=== PATIENT | female | born 1945 | race Caucasian/White ===

== ENCOUNTER 2017-04-20 18:55 | Emergency (ER) | payer MEDICARE ==
[2017-04-20] MEDS ORDERED: Sodium Chloride 0.9% 1000 ML 1,000 ML IV STA (19:15)
[2017-04-20] MEDS ORDERED: Phenergan 25 MG INJ IV ONE (19:15)
[2017-04-20] MEDS ORDERED: MORPHINE SULFATE 4 MG INJ IV ONE (19:15)
--- NOTE | 2017-04-20 19:20 | ERPHSYRPT ---
- History of Present Illness Time Seen by Provider: 04/20/17 19:02 Source: patient Exam Limitations: no limitations Patient Subjective Stated Complaint: pt states she fell 2 days ago and has been having increased back pain and pain in her legs, bilat knees and lt hip. Triage Nursing Assessment: pt alert and oriented, asnwers questions approp. pt arrive per ambulance. transfer from ambulance cot to stretcher with assist of 3. respirations nonlabored with lungs cta. abd soft and nontender, colostomy to lt abd with small amt of formed stool. strength in bilat lower ext wnl. cap refill and sensation to bilat lower ext wnl. Physician History: TWO DAYS AGO PT WAS AT HOME WEARING HOSPITAL SOX WHEN SHE SLIPPED AND FELL WITH RESULTANT PAIN IN THE BACK, LEFT HIP, KNEES, LEGS AND RIGHT LOWER ABDOMEN. PT DENIES SHORTNESS OF AIR, CHEST PAIN, WEAKNESS, NUMBNESS. Allergies/Adverse Reactions: No Known Drug Allergies Allergy (Verified 04/20/17 19:18) Home Medications: Alprazolam 1 mg [Xanax 1 mg] 1 mg PO TID 04/02/13 [History] Aspirin 81 gm Chew [Baby Aspirin 81 mg Chew] 81 mg PO DAILY 04/02/13 [ History] Clopidogrel Bisulfate 75 mg [PLAVIX 75 MG Tablet] 75 mg PO DAILY 04/02/13 [History] Furosemide 40 mg PO DAILY 04/02/13 [History] Lisinopril 5 mg [Zestril 5 MG] 5 mg PO DAILY 04/02/13 [History] Oxycodone HCl 20 mg PO QID 04/02/13 [History] Potassium Chloride 20 Meq [Klor-Con 20 MEQ] 10 meq PO BID 04/02/13 [History] Prednisone 20 mg [Deltasone 20 mg] 5 mg PO BID 04/02/13 [History] Propylthiouracil 50 mg PO TID 04/02/13 [History] Simvastatin 40 mg [Zocor 40 mg] 40 mg PO DAILY 04/02/13 [History] Sotalol HCl [Betapace] 80 mg PO BID 04/02/13 [History] Fentanyl 50Mcg Patch [Duragesic 50MCG Patch] 1 patch TD UD 04/20/17 [ History] Glipizide 5 mg [Glucotrol 5 MG] 5 mg PO DAILY 04/20/17 [History] Omeprazole [Prilosec] 40 mg PO DAILY 04/20/17 [History] Venlafaxine HCl ER 37.5 mg [Effexor ER 37.5 MG] 37.5 mg PO DAILY 04/20/17 [History] Hx Tetanus, Diphtheria Vaccination/Date Given: Yes Hx Influenza Vaccination/Date Given: No Hx Pneumococcal Vaccination/Date Given: No - Review of Systems Constitutional: No Weakness Respiratory: No Dyspnea Cardiac: No Chest Pain Abdominal/Gastrointestinal: Abdominal Pain Musculoskeletal: Back Pain, Other (PAIN IN LEGS, KNEES AND LEFT HIP) Neurological: No Sensory Changes All Other Systems: Reviewed and Negative - Past Medical History Pertinent Past Medical History: Yes Neurological History: Peripheral Neuropathy ENT History: No Pertinent History Cardiac History: Congestive Heart Failure, Myocardial Infarction (CT) Respiratory History: No Pertinent History Endocrine Medical History: Diabetes Type II Musculoskeletal History: Other GI Medical History: Diverticulitis, GERD, Hernia, Other History: Other Psycho-Social History: Anxiety, Depression Female Reproductive Disorders: No Pertinent History Other Medical History: back pain - Past Surgical History Past Surgical History: Yes Neuro Surgical History: No Pertinent History Cardiac: Angioplasty, Internal Defibrillator Respiratory: No Pertinent History Gastrointestinal: Bowel Surgery Genitourinary: No Pertinent History Musculoskeletal: No Pertinent History Female Surgical History: Hysterectomy, Tubal Ligation Other Surgical History: bladder tie up. pacemaker defib. 1 heart stent - Social History Smoking Status: Former smoker How long have you smoked: 40yrs Exposure to second hand smoke: Yes Drug Use: none Patient Lives Alone: Yes - Nursing Vital Signs Nursing Vital Signs: Initial Vital Signs Temperature 98.7 F 04/20/17 19:02 Pulse Rate 134 H 04/20/17 19:02 Respiratory Rate 20 04/20/17 19:02 Blood Pressure 131/88 04/20/17 19:02 O2 Sat by Pulse Oximetry 94 L 04/20/17 19:02 Pain Scale Pain Intensity 6 - Isai Coma Score Best Eye Response ([place]): (4) open spontaneously Best Verbal Response (Isai): (5) oriented Best Motor Response (Isai): (6) obeys commands [place] Total: 15 - Physical Exam General Appearance: alert Head Injury: no evidence of injury Eye Exam: eyes nml inspection ENT Exam: airway nml, hearing grossly normal Neck Exam: trachea midline, normal inspection, No tenderness Respiratory/Chest Exam: normal breath sounds Cardiovascular Exam: murmur (2/6 SYSTOLIC MURMUR) Gastrointestinal Exam: soft, normal bowel sounds, tenderness (MILD RLQ ABDOMINAL TENDERNESS), other (COLOSTOMY LEFT SIDE OF ABDOMEN) Back Exam: other (KYPHOSIS) Extremity Exam: normal range of motion, pelvis stable, tenderness (MILD LEFT HIP , KNEES AND BILATERAL LEG TENDERNESS) Peripheral Pulses: dorsalis-pedis (R): 2+, dorsalis-pedis (L): 2+ Neurologic Exam: alert, cooperative, sensation nml, No motor deficits, No motor weakness Skin Exam: warm, dry SpO2 Interpretation: normal SpO2: 94 Oxygen Delivery: Room Air - Course Nursing assessment & vital signs reviewed: Yes EKG Interpreted by Me: RATE (136), NORMAL AXIS, Left Bundle Branch Block, Other (VENTRICULAR TACHYCARDIA) - Radiology Exams Left Lower Leg X-ray Interpretation: Interpreted by me, No Fracture Pelvis X-ray Interpretation: Interpreted by me, No Fracture Right Lower Leg X-ray Interpretation: Teleradiologist Report, No Fracture Right Knee X-ray Interpretation: Teleradiologist Report (SUGGESTION OF A BONY STRUCTURE ADJACENT TO THE MEDIAL TIBIAL PLATEAU SEEN ON ONLY ONE IMAGE. A NON-DISPLACED FRACTURE WOULD HAVER A SIMILAR APPEARANCE.) Left Knee X-ray Interpretation: Teleradiologist Report (NO ACUTE FINDINGS) T-Spine X-ray Interpretation: Teleradiologist Report (DEMINERALIZATION OF THE BONES LIMITS EVALUATION FOR NONDISPLACED FRACTURES. THERE APPEAR TO BE MULTIPLE MILD COMPRESSION DEFORMITIES IN THE THORACIC SPINE ARE NOT PRESENT ON PRIOR EXAMINATION.) L-Spine X-ray Interpretation: Teleradiologist Report (SEVERE DEMINERALIZATION OF THE BONES LIMITS EVALUATION FOR NONDISPLACED FRACTURES. COMPARED TO PRIOR STUDY, THERE ARE NEW L4 AND L5 SUPERIOR ENDPLATE FRACTURES. THERE APPEAR TO BE NEW T10 , T11, AND T12 SUPERIOR ENDPLATE FRACTURES WELL. THESE ARE AGE-INDETERMINATE , POSSIBLY ACUTE.) Chest X-ray Interpretation: Interpreted by me (CM) - CT Exams Abdomen/Pelvis CT Interpretation: Discussed w/radiologist (COMPARED TO 04/11/11: STABLE LEFT SIDED COLOSTOMY WITHOUT COMPLICATIONS. STABLE RECTAL STUMP CONCRETIONS. NEW SMALL HIATAL HERNIA. FATTY LIVER. REMOTE BILATERAL PELVIC BONE FRACTURES. REMOTE T11/T12 COMPRESSION FX. NOTHING ACUTE.) Chest CT Interpretation: Tele-radiologist Report (NO PE; SPICULATED 1.6 CM RIGHT UPPER LOBE PULMONARY NODULE ON IMAGE 131 OF SERIES 2 IS WORRISOME FOR MALIGNANCY. ) Ordered Tests: Active Orders 24 hr Category Date Time Status Hand Bunch Maker STAT Care 04/21/17 00:52 Active Clean Catch Urine Specimen STAT Care 04/20/17 19:15 Active EKG-ER Only STAT Care 04/21/17 00:51 Active IV Insertion STAT Care 04/20/17 19:15 Active Oxygen-ED Only NASAL CANNULA 2 lpm Care 04/21/17 00:51 Active Pulse Oximetry (ED) STAT Care 04/21/17 00:51 Active ABDOMEN AND PELVIS W/0 CONTRAS [CT] Stat Exams 04/20/17 19:16 Taken CHEST 1 VIEW (PORTABLE) Stat Exams 04/21/17 00:51 Taken CHEST WITH CONTRAST [CT] Stat Exams 04/21/17 01:43 Ordered KNEE (3 VIEWS) Stat Exams 04/20/17 19:17 Taken KNEE (3 VIEWS) Stat Exams 04/20/17 19:19 Taken LOWER LEG Stat Exams 04/20/17 19:17 Taken LOWER LEG Stat Exams 04/20/17 19:19 Taken LUMBAR COMPLETE (MIN 4 VIEWS) Stat Exams 04/20/17 19:17 Taken PELVIS (1 OR 2 VIEWS) Stat Exams 04/20/17 19:17 Taken THORACIC SPINE (AP,LAT,SWIMM) Stat Exams 04/20/17 19:17 Taken AMYLASE Stat Lab 04/20/17 19:30 Completed CBC W DIFF Stat Lab 04/20/17 19:30 Completed CMP Stat Lab 04/20/17 19:30 Completed D-DIMER QUANTITATION Stat Lab 04/21/17 01:10 Completed LIPASE Stat Lab 04/20/17 19:30 Completed MAG [MAGNESIUM] Stat Lab 04/20/17 19:30 Completed MAGNESIUM Stat Lab 04/21/17 01:10 Completed NT PRO BNP Stat Lab 04/21/17 01:10 Completed TROPONIN Q3H Lab 04/21/17 01:10 Completed TROPONIN Q3H Lab 04/21/17 04:05 Received TROPONIN Q3H Lab 04/21/17 07:00 Ordered TROPONIN Q3H Lab 04/21/17 10:00 Ordered TROPONIN Q3H Lab 04/21/17 13:00 Ordered UA W/RFX UR CULTURE Stat Lab 04/20/17 19:16 Ordered Medication Summary Generic Name Dose Route Start Last Admin Trade Name Freq PRN Reason Stop Dose Admin Potassium Chloride/Sodium Chloride 1,000 mls @ 500 mls/hr 04/21/17 01:00 01:00 Sodium Chloride 0.9% W/ 20 Meq Kcl/Liter IV 05/21/17 00:59 500 mls/hr .Q2H LUIS MIGUEL Administration AMIODARONE IN DEXTROSE,ISO-OSM 360 mg in 200 mls @ 33 mls/hr 04/21/17 02:30 04/21/17 03:08 Nexterone 360 Mg/200 Ml Bag IV 05/21/17 02:29 33 mls/hr .Q6H4M LUIS MIGUEL Administration Protocol Discontinued Medications Generic Name Dose Route Start Last Admin Trade Name [place] PRN Reason Stop Dose Admin Amiodarone HCl 150 mg 04/21/17 01:21 04/21/17 01:32 Cordarone 150 Mg/3 Ml Injection IV 04/21/17 01:22 150 mg STAT ONE Administration Amiodarone HCl Confirm 04/21/17 01:21 Cordarone 150 Mg/3 Ml Injection Administered 04/21/17 01:22 Dose 150 mg .ROUTE .STK-MED ONE Fentanyl Citrate 25 mcg 04/21/17 03:44 04/21/17 03:51 Sublimaze 100 Mcg/2 Ml IV 04/21/17 03:45 25 mcg STAT ONE Administration Fentanyl Citrate Confirm 04/21/17 03:50 Sublimaze 100 Mcg/2 Ml Administered 04/21/17 03:51 Dose 100 mcg .ROUTE .STK-MED ONE Sodium Chloride 1,000 mls @ 999 mls/hr 04/20/17 19:15 04/20/17 21:15 Sodium Chloride 0.9% 1000 Ml IV 04/20/17 20:15 999 mls/hr .Q1H1M STA Administration Sodium Chloride Confirm 04/20/17 19:40 Sodium Chloride 0.9% 1000 Ml Administered 04/20/17 19:41 Dose 1,000 mls @ ud .ROUTE .STK-MED ONE Sodium Chloride Confirm 04/21/17 01:22 Sodium Chloride 0.9% 100 Ml Ivpb Administered 04/21/17 01:23 Dose 100 mls @ ud IV .STK-MED ONE Dextrose Confirm 04/21/17 01:26 D5w 100ml Mini Bag 100 Ml Administered 04/21/17 01:27 Dose 100 mls @ ud IV .STK-MED ONE Sodium Chloride Confirm 04/21/17 03:50 Sodium Chloride 0.9% 1000 Ml Administered 04/21/17 03:51 Dose 1,000 mls @ ud .ROUTE .STK-MED ONE Morphine Sulfate 4 mg 04/20/17 19:15 04/20/17 21:15 Morphine Sulfate 4 Mg Inj IV 04/20/17 19:16 4 mg STAT ONE Administration Morphine Sulfate Confirm 04/20/17 19:40 Morphine Sulfate 4 Mg Inj Administered 04/20/17 19:41 Dose 4 mg .ROUTE .STK-MED ONE Potassium Bicarbonate 50 meq 04/20/17 23:08 04/21/17 02:39 K-Lyte 25 Meq PO 04/20/17 23:09 Not Given STAT ONE Potassium Bicarbonate Confirm 04/20/17 23:27 K-Lyte 25 Meq Administered 04/20/17 23:28 Dose 50 meq .ROUTE .STK-MED ONE Promethazine HCl 12.5 mg 04/20/17 19:15 04/20/17 21:15 Phenergan 25 Mg Inj IV 04/20/17 19:16 12.5 mg STAT ONE Administration Promethazine HCl Confirm 04/20/17 19:40 Phenergan 25 Mg Inj Administered 04/20/17 19:41 Dose 25 mg .ROUTE .STK-MED ONE Lab/Rad Data: Laboratory Result Diagrams 04/20/17 19:30 04/20/17 19:30 Laboratory Results 04/21/17 04/21/17 04/21/17 Range/Units 01:10 01:10 01:10 WBC (4.0-10.5) K/mm3 RBC (4.1-5.4) M/mm3 Hgb (12.0-16.0) gm/dl Hct (35-47) % MCV (78-100) fl MCH (26-32) pg MCHC (32-36) g/dl RDW (11.5-14.0) % Plt Count (150-450) K/mm3 MPV (6-9.5) fl Gran % (36.0-66.0) % Lymphocytes % (24.0-44.0) % Monocytes % (0.0-12.0) % Eosinophils % (0.00-5.0) % Basophils % (0.0-0.4) % Basophils # (0-0.4) D-Dimer 1276.84 H* (215-500) ng/mL Sodium (137-145) mmol/L Potassium (3.5-5.1) mmol/L Chloride (98-107) mmol/L Carbon Dioxide (22-30) mmol/L Anion Gap (5-15) MEQ/L BUN (7-17) mg/dL Creatinine (0.52-1.04) mg/dL Estimated GFR ML/MIN Glucose (74-106) mg/dL Calcium (8.4-10.2) mg/dL Magnesium 1.6 (1.6-2.3) mg/dL Total Bilirubin (0.2-1.3) mg/dL AST (14-36) U/L ALT (0-35) U/L Alkaline Phosphatase (38-126) U/L Troponin I 0.072 H (0.000-0.034) ng/mL NT-Pro-B Natriuret Pep 1220 H (0-900) pg/mL Serum Total Protein (6.3-8.2) g/dL Albumin (3.5-5.0) g/dL Amylase (30-110) U/L Lipase (23-300) U/L 04/20/17 04/20/17 04/20/17 Range/Units 19:30 19:30 19:30 WBC 7.4 (4.0-10.5) K/mm3 RBC 4.87 (4.1-5.4) M/mm3 Hgb 14.2 (12.0-16.0) gm/dl Hct 44.0 (35-47) % MCV 90.3 (78-100) fl MCH 29.2 (26-32) pg MCHC 32.3 (32-36) g/dl RDW 14.5 H (11.5-14.0) % Plt Count 197 (150-450) K/mm3 MPV 9.7 H (6-9.5) fl Gran % 68.0 H (36.0-66.0) % Lymphocytes % 17.7 L (24.0-44.0) % Monocytes % 13.1 H (0.0-12.0) % Eosinophils % 0.9 (0.00-5.0) % Basophils % 0.3 (0.0-0.4) % Basophils # 0.02 (0-0.4) D-Dimer (215-500) ng/mL Sodium 135 L (137-145) mmol/L Potassium 3.0 L (3.5-5.1) mmol/L Chloride 94 L (98-107) mmol/L Carbon Dioxide 29 (22-30) mmol/L Anion Gap 15.4 H (5-15) MEQ/L BUN 12 (7-17) mg/dL Creatinine 0.53 (0.52-1.04) mg/dL Estimated GFR > 60 ML/MIN Glucose 151 H (74-106) mg/dL Calcium 9.1 (8.4-10.2) mg/dL Magnesium 1.6 (1.6-2.3) mg/dL Total Bilirubin 2.00 H (0.2-1.3) mg/dL AST 31 (14-36) U/L ALT 21 (0-35) U/L Alkaline Phosphatase 69 (38-126) U/L Troponin I (0.000-0.034) ng/mL NT-Pro-B Natriuret Pep (0-900) pg/mL Serum Total Protein 6.7 (6.3-8.2) g/dL Albumin 4.0 (3.5-5.0) g/dL Amylase 36 (30-110) U/L Lipase 24 (23-300) U/L - Progress Discussed with : Other (SPOKE WITH DR BOWERS(COVERING DINING HOST FOR DR VIDAL(PT'S DINING HOST))(5458) WHO ACCEPTED PT FOR TRANSFER TO [facility] A DIRECT ADMISSION.) - Departure Time of Disposition: 04:24 Departure Disposition: Transfer ([facility]) Clinical Impression: FALL, VENTRICULAR TACHYCARDIA, ELEVATED TROPONIN I, CONTUSIONS OF KNEES AND LEGS, COMPRESSION FRACTURES OF THE BACK, DM, GERD, ANXIETY, DEPRESSION, ABDOMINAL PAIN, PN Condition: Stable Critical Care Time: Yes Critical Care Time(excluding separately billable procedures): 30-74 minutes Referrals: GABRIELLA MONROY [Primary Care Provider] -
[2017-04-20] MEDS ORDERED: MORPHINE SULFATE 4 MG INJ ONE (19:40)
[2017-04-20] MEDS ORDERED: Sodium Chloride 0.9% 1000 ML 1,000 ML ONE (19:40)
[2017-04-20] MEDS ORDERED: Phenergan 25 MG INJ ONE (19:40)
[2017-04-20 19:52] LABS: BASOPHIL % 0.3 % (0.0-0.4); Basophil (Absolute #) 0.02 (0-0.4); Eosinophil % 0.9 % (0.00-5.0); Eosinophil (Absolute #) 0.07 (0-0.5); Granulocyte Absolute (ANC) 5.02 (1.4-6.9); Hemoglobin 14.2 gm/dl (12.0-16.0); Lymphocyte (Absolute #) 1.31 (1.0-4.6); Lymphocytes % 17.7 % (24.0-44.0); Mean Cell Volume 90.3 fl (78-100); Mean Corpuscular Hemoglobin 29.2 pg (26-32); Mean Corpuscular Hgb Concent. 32.3 g/dl (32-36); Mean Platelet Volume 9.7 fl (6-9.5); Monocyte (Absolute #) 0.97 (0.0-1.3); Monocytes % 13.1 % (0.0-12.0); Platelet Count 197 K/mm3 (150-450); Red Blood Count 4.87 M/mm3 (4.1-5.4); Red Cell Distribution Width 14.5 % (11.5-14.0); White Blood Count 7.4 K/mm3 (4.0-10.5)
[2017-04-20 20:13] LABS: ALKALINE PHOSPHATASE 69 U/L (38-126); AMYLASE 36 U/L (30-110); ANION GAP 15.4 MEQ/L (5-15); BLOOD UREA NITROGEN 12 mg/dL (7-17); CHLORIDE 94 mmol/L (98-107); Calcium 9.1 mg/dL (8.4-10.2); Carbon Dioxide 29 mmol/L (22-30); Creatinine 1 0.53 mg/dL (0.52-1.04); Glucose 151 mg/dL (74-106); LIPASE 24 U/L (23-300); SGOT/AST 31 U/L (14-36); SGPT/ALT 21 U/L (0-35); SODIUM 135 mmol/L (137-145); Total Protein 6.7 g/dL (6.3-8.2)
[2017-04-20] MEDS ORDERED: K-LYTE 25 MEQ ONE (23:27)
[2017-04-20] MEDS: K-LYTE 25 MEQ PO ONE (23:32)
[2017-04-21] MEDS ORDERED: Sodium Chloride 0.9% W/ 20 mEq KCl/LITER 1,000 ML IV ONE (00:59)
[2017-04-21] MEDS ORDERED: Sodium Chloride 0.9% W/ 20 mEq KCl/LITER 1,000 ML IV SCH (01:00)
[2017-04-21] MEDS ORDERED: Cordarone 150 MG/3 ML Injection ONE (01:21)
[2017-04-21] MEDS ORDERED: Cordarone 150 MG/3 ML Injection IV ONE (01:21)
[2017-04-21] MEDS ORDERED: Sodium Chloride 0.9% 100 ML IVPB 100 ML IV ONE (01:22)
[2017-04-21] MEDS ORDERED: D5w 100ML Mini Bag 100 ML 100 ML IV ONE (01:26)
[2017-04-21] MEDS ORDERED: NEXTERONE 360 MG/200 ML BAG 360 MG/200 ML PLAST..BAG IV ONE (02:26)
[2017-04-21] MEDS ORDERED: NEXTERONE 360 MG/200 ML BAG 360 MG/200 ML PLAST..BAG IV SCH (02:30)
[2017-04-21] MEDS: K-LYTE 25 MEQ PO ONE (02:39)
[2017-04-21] MEDS ORDERED: SUBLIMAZE 100 MCG/2 ML IV ONE (03:44)
[2017-04-21] MEDS ORDERED: Sodium Chloride 0.9% 1000 ML 0 ML ONE (03:50)
[2017-04-21] MEDS ORDERED: SUBLIMAZE 100 MCG/2 ML ONE (03:50)
[2017-04-21 04:23] LABS: Appearance CLEAR (CLEAR); Bilirubin NEGATIVE (NEGATIVE); Blood TRACE NON-HEM Ery/ul (0-5); Glucose NEGATIVE (NEGATIVE); Ketones LARGE (NEGATIVE); Leukocyte Esterase NEGATIVE (NEGATIVE); Nitrite NEGATIVE (NEGATIVE); Protein,Urine Dip NEGATIVE (Negative); Urobilinogen NORMAL mg/dL (0-1)
[2017-04-21 04:24] LABS: Epithelial Cells FEW /HPF (FEW); WBC 0-2 /HPF (0-5)
[2017-04-21 04:45] LABS: ANION GAP 16.5 MEQ/L (5-15); BLOOD UREA NITROGEN 6 mg/dL (7-17); CHLORIDE 103 mmol/L (98-107); Carbon Dioxide 20 mmol/L (22-30); Creatinine 1 0.42 mg/dL (0.52-1.04); Glucose 114 mg/dL (74-106); Potassium 3.4 mmol/L (3.5-5.1); SODIUM 137 mmol/L (137-145)
[2017-04-21 05:04] VITALS: O2SAT 97
[2017-04-21 05:49] VITALS: BP 113/71; PULSE 112
--- NOTE | 2017-04-21 09:20 | XRAY ---
Indication: Elevated d-dimer. Multiple contiguous axial images obtained through the chest using 80 cc Isovue 370 contrast and PE protocol. Comparison: May 02, 2011. There is good opacification of the pulmonary arteries to include the lobar and segmental branches. No filling defect or pulmonary embolus. Heart remains borderline enlarged again with left-sided pacemaker and leads. Aorta is mild/moderately arteriosclerotic without aneurysm/dissection. Stable subcarinal calcified nodes. No pathologic mediastinal/hilar lymphadenopathy. New small hiatal hernia. New bilateral thyroid nodules/cysts, largest on the right measuring 13 mm. Examination of the lung parenchyma again appears hyperinflated with bilateral dependent atelectasis, bibasilar fibrosis/scarring, and right lower lobe calcified granuloma. New 1.6 cm right upper lobe mass with irregular/spiculated margins. No infiltrate or effusion. Bony thorax again demonstrates osteopenia and multilevel degenerative endplate spurring. Remote-appearing T5/T7/T10/T11/T12 compression fractures and L1-L3 kyphoplasty. CT abdomen reported separately. Impression: 1. Negative pulmonary embolus. 2. New 1.6 cm right upper lobe pulmonary mass concerning for malignancy. PET/CT may yield further information. 3. New small hiatal hernia and bilateral thyroid nodules/cyst. 4. Again borderline cardiomegaly and evidence for old granulomatous disease. 5. New remote-appearing thoracolumbar compression fractures. Comment: Preliminary interpretation was made by [facility]. No discrepancy. CT DI 23.06
--- NOTE | 2017-04-21 09:23 | XRAY ---
Indication: Short of breath. Comparison: May 02, 2011. Portable chest underinflated again with borderline cardiomegaly, left-sided single lead pacemaker, and right base calcified granuloma. New CT proven right upper lobe masslike opacity. No infiltrate or large effusion. Bony thorax again demonstrates mild osteopenia and degenerative changes with new remote-appearing thoracolumbar compression fractures and L1-L3 kyphoplasty.
--- NOTE | 2017-04-21 09:25 | XRAY ---
Indication: Pain following fall. Comparison: January 19, 2012. Frontal/lateral thoracic spine again demonstrates age-related osteopenia, scattered aortic calcifications, and partially visualized cardiac pacer lead. New remote-appearing T5/T/T9-T12 compression fractures with approximately 50% height loss and accentuated thoracic kyphosis. Interval L1/L3 kyphoplasty. No other bony, articular, or soft tissue abnormalities. Comment: Preliminary interpretation was made by [facility]. No discrepancy.
--- NOTE | 2017-04-21 09:27 | XRAY ---
Indication: Pain following fall. Comparison: None 2 views of the left lower leg demonstrates osteopenia and scattered soft tissue calcified granulomas. No other bony, articular, or soft tissue abnormalities.
--- NOTE | 2017-04-21 09:29 | XRAY ---
Indication: Pain following fall. Comparison: None 2 views of the right lower leg demonstrates osteopenia, bicompartmental knee degenerative changes, medial knee air bubbles, scattered soft tissue calcified granulomas, and vascular calcifications. No other bony, articular, or soft tissue abnormalities. Comment: Preliminary interpretation was made by [facility]. No discrepancy.
--- NOTE | 2017-04-21 09:33 | XRAY ---
Indication: Pain following fall. Comparison: None Single AP pelvis demonstrates osteopenia, mild bilateral hip degenerative changes, old bilateral pubic bone fractures, and dense rectal concretions. No other bony, articular, or soft tissue abnormalities. Lumbar spine reported separately.
--- NOTE | 2017-04-21 09:33 | XRAY ---
Indication: Pain following fall. Comparison: April 03, 2013. 5 views of the lumbar spine again demonstrates osteopenia, mild levorotoscoliosis, and heavy aortoiliac calcifications. Interval L1-L3 kyphoplasty and remote T10/T11/T12 L4/L5 compression fractures with approximately 50% height loss. No other bony, articular, or soft tissue abnormalities. Pelvis reported separately. Comment: Preliminary interpretation was made by [facility]. No discrepancy.
--- NOTE | 2017-04-21 09:35 | XRAY ---
Indication: Pain following fall. Comparison: None 3 views of the left knee demonstrates osteopenia, faint medial/lateral degenerative chondrocalcinosis, soft tissue calcite granulomas, and minimal vascular calcifications. No other bony, articular, or soft tissue abnormalities. Comment: Preliminary interpretation was made by [facility]. No discrepancy.
--- NOTE | 2017-04-21 09:37 | XRAY ---
Indication: Pain following fall. Comparison: None 3 views of the right knee demonstrates osteopenia, mild/moderate tricompartmental degenerative changes, soft tissue calcified granulomas, and minimal vascular calcifications. Tiny ossification adjacent to the medial tibial plateau with soft tissue swelling and tiny air bubbles concerning for fracture. No other bony, articular, or soft tissue abnormalities. Comment: Preliminary interpretation was made by [facility]. No critical discrepancy.
--- NOTE | 2017-04-23 00:36 | XRAY ---
Indication: Abdominal pain. Status post fall 2 days. Multiple contiguous axial images obtained through the abdomen and pelvis without contrast as ordered. Comparison: April 11, 2011. Lung bases again hyperinflated with minimal bibasilar atelectasis/scarring and right lower lobe calcified granuloma. No infiltrate or effusion. Heart is not enlarged. New small hiatal hernia. Again previous colectomy with left abdomen colostomy. Noncontrasted stomach and bowel loops appear nonobstructed. Rectal stump again demonstrates dense intraluminal concretions. No free fluid/air. Mild diffuse fatty liver and previous hysterectomy. Again solitary punctate pancreatic tail calcification presumed from chronic pancreatitis and a few calcified splenic granulomas. No free fluid/air. Remaining liver, gallbladder, pancreas, spleen, adrenal glands, kidneys, ureters, and bladder appear unremarkable for noncontrast exam. Moderate scattered aortoiliac calcifications without AAA. Osseous structures demonstrates new remote-appearing T11/T12 compression fractures, old bilateral pubic bone fractures, and L1-L3 kyphoplasty. Impression: 1. New small hiatal hernia and fatty liver. 2. Again colectomy with left-sided colostomy. No complications. 3. No acute intra-abdominal/pelvic abnormalities on this noncontrast exam. 4. New findings for old T11/T12 compression fractures, old bilateral pubic bone fractures, and L1-L3 kyphoplasty. CT DI 20.99
== END 2017-04-21 05:38 | disposition short-term general hospital (02) ==
LOC: ED 18:55
DX: S80.02XA Contusion of left knee, initial encounter (principal); S80.01XA Contusion of right knee, initial encounter; I47.2 Ventricular tachycardia; R77.8 Other specified abnormalities of plasma proteins; S22.059A Unspecified fracture of T5-T6 vertebra, initial encounter for closed fracture; S22.079A Unspecified fracture of T9-T10 vertebra, initial encounter for closed fracture; S22.089A Unspecified fracture of T11-T12 vertebra, initial encounter for closed fracture; Z79.01 Long term (current) use of anticoagulants; E11.9 Type 2 diabetes mellitus without complications; K21.9 Gastro-esophageal reflux disease without esophagitis; F41.8 Other specified anxiety disorders; R10.9 Unspecified abdominal pain; Z93.3 Colostomy status; Z79.899 Other long term (current) drug therapy; I44.7 Left bundle-branch block, unspecified; R91.1 Solitary pulmonary nodule; W01.0XXA Fall on same level from slipping, tripping and stumbling without subsequent striking against object, initial encounter
CPT/HCPCS: 36000; 36415; 71045; 71260; 72072; 72110; 72170; 73562; 73590; 74176; 80048; 80053; 81000; 82150; 83690; 83735; 83880; 84484; 85025; 85379; 93005; 93041; 96360; 96361; 96365; 96366; 99285; J0282; J2270; J2550; J3010; A9270-GY

== ENCOUNTER 2017-12-29 16:13 | Emergency (ER) | payer MEDICARE ==
--- NOTE | 2017-12-29 16:55 | ERPHSYRPT ---
- History of Present Illness Time Seen by Provider: 12/29/17 16:52 Exam Limitations: no limitations Patient Subjective Stated Complaint: Some pain during urination with dribbling, confusion Triage Nursing Assessment: Pt c/o of some pain during urination with dribbling, some confusion, tachycardic, no edema, no pain with palpatation on abdomen, distended, colostomy bag, denies any other issues Physician History: pt noted to be confused by family and has had uti in past , no trauma , but has noted some bowel changes and some tenderness to palp general and distension; no vomting, not short of breath - no CP; normal neuro exam; Timing/Duration: day(s) Abdominal Pain Onset Location: generalized abdomen Pain Radiation: no radiation Severity of Pain-Max: mild Severity of Pain-Current: mild Associated Symptoms: fatigue Previous symptoms: same symptoms as today Allergies/Adverse Reactions: No Known Drug Allergies Allergy (Verified 12/29/17 16:45) Home Medications: Alprazolam 1 mg [Xanax 1 mg] 1 mg PO TID 04/02/13 [History] Aspirin 81 gm Chew [Baby Aspirin 81 mg Chew] 81 mg PO DAILY 04/02/13 [ History] Clopidogrel Bisulfate 75 mg [PLAVIX 75 MG Tablet] 75 mg PO DAILY 04/02/13 [History] Furosemide 40 mg PO DAILY 04/02/13 [History] Lisinopril 5 mg [Zestril 5 MG] 5 mg PO DAILY 04/02/13 [History] Oxycodone HCl 20 mg PO QID 04/02/13 [History] Potassium Chloride 20 Meq [Klor-Con 20 MEQ] 10 meq PO BID 04/02/13 [History] Prednisone 20 mg [Deltasone 20 mg] 5 mg PO BID 04/02/13 [History] Propylthiouracil 50 mg PO TID 04/02/13 [History] Simvastatin 40 mg [Zocor 40 mg] 40 mg PO DAILY 04/02/13 [History] Sotalol HCl [Betapace] 80 mg PO BID 04/02/13 [History] Fentanyl 50Mcg Patch [Duragesic 50MCG Patch] 1 patch TD UD 04/20/17 [ History] Glipizide 5 mg [Glucotrol 5 MG] 5 mg PO DAILY 04/20/17 [History] Omeprazole [Prilosec] 40 mg PO DAILY 04/20/17 [History] Venlafaxine HCl ER 37.5 mg [Effexor ER 37.5 MG] 37.5 mg PO DAILY 04/20/17 [History] Hx Tetanus, Diphtheria Vaccination/Date Given: Yes Hx Influenza Vaccination/Date Given: No Hx Pneumococcal Vaccination/Date Given: No - Review of Systems Constitutional: No Fever, No Chills Eyes: No Symptoms Ears, Nose, & Throat: No Symptoms Respiratory: No Cough, No Dyspnea Cardiac: No Chest Pain, No Edema, No Syncope Abdominal/Gastrointestinal: Abdominal Pain, No Nausea, No Vomiting, No Diarrhea Genitourinary Symptoms: Dysuria Musculoskeletal: No Back Pain, No Neck Pain Skin: No Rash Neurological: No Dizziness, No Focal Weakness, No Sensory Changes Psychological: No Symptoms Endocrine: No Symptoms All Other Systems: Reviewed and Negative - Past Medical History Pertinent Past Medical History: Yes Neurological History: Peripheral Neuropathy ENT History: No Pertinent History Cardiac History: Congestive Heart Failure, Myocardial Infarction (PA) Respiratory History: No Pertinent History Endocrine Medical History: Diabetes Type II Musculoskeletal History: Other GI Medical History: Diverticulitis, GERD, Hernia, Other History: Other Psycho-Social History: Anxiety, Depression Female Reproductive Disorders: No Pertinent History Other Medical History: back pain - Past Surgical History Past Surgical History: Yes Neuro Surgical History: No Pertinent History Cardiac: Angioplasty, Internal Defibrillator Respiratory: No Pertinent History Gastrointestinal: Bowel Surgery Genitourinary: No Pertinent History Musculoskeletal: No Pertinent History Female Surgical History: Hysterectomy, Tubal Ligation Other Surgical History: bladder tie up. pacemaker defib. 1 heart stent - Social History Smoking Status: Former smoker How long have you smoked: 40yrs Exposure to second hand smoke: Yes Drug Use: none Patient Lives Alone: Yes - Female History Hx Now: No - Nursing Vital Signs Nursing Vital Signs: Initial Vital Signs Temperature 97.5 F 12/29/17 16:26 Pulse Rate 111 H 12/29/17 16:26 Blood Pressure 124/76 12/29/17 16:26 O2 Sat by Pulse Oximetry 96 12/29/17 16:26 - Physical Exam General Appearance: no apparent distress, alert Eye Exam: PERRL/EOMI, eyes nml inspection Ears, Nose, Throat Exam: normal ENT inspection, pharynx normal, moist mucous membranes Neck Exam: normal inspection, non-tender, supple, full range of motion Respiratory Exam: normal breath sounds, lungs clear, No respiratory distress Cardiovascular Exam: regular rate/rhythm, normal heart sounds Gastrointestinal/Abdomen Exam: soft, tenderness, distention, No mass Pelvic Exam: deferred Rectal Exam: deferred Back Exam: normal inspection, normal range of motion, No CVA tenderness, No vertebral tenderness Extremity Exam: normal inspection, normal range of motion, pelvis stable Neurologic Exam: alert, oriented x 3, cooperative, normal mood/affect, nml cerebellar function, sensation nml, No motor deficits Skin Exam: normal color, warm, dry SpO2: 96 Oxygen Delivery: Room Air - Course Nursing assessment & vital signs reviewed: Yes EKG Interpreted by Me: Sinus Tach, NORMAL AXIS, Non-specific ST Changes - CT Exams Head CT Interpretation: Tele-radiologist Report, Other (small meningioma) Abdomen/Pelvis CT Interpretation: Tele-radiologist Report, No appendicitis (lung granuloma) Ordered Tests: Active Orders 24 hr Category Date Time Status EKG-ER Only STAT Care 12/29/17 16:58 Active ABDOMEN AND PELVIS W/0 CONTRAS [CT] Stat Exams 12/29/17 16:57 Taken CHEST 1 VIEW (PORTABLE) Stat Exams 12/29/17 16:56 Taken HEAD WITHOUT CONTRAST [CT] Stat Exams 12/29/17 16:57 Taken BNP [NT PRO BNP] Stat Lab 12/29/17 16:59 Completed CBC W DIFF Stat Lab 12/29/17 17:10 Completed CMP Stat Lab 12/29/17 17:10 Completed CULTURE,URINE Stat Lab 12/29/17 18:45 Received LIPASE Stat Lab 12/29/17 17:10 Completed Lactic Acid Stat Lab 12/29/17 17:35 Results T4 (Thyroxine) Stat Lab 12/29/17 17:10 Completed TROPONIN Q3H Lab 12/29/17 17:10 Completed TROPONIN Q3H Lab 12/29/17 20:00 Ordered TROPONIN Q3H Lab 12/29/17 23:00 Ordered TROPONIN Q3H Lab 12/30/17 02:00 Ordered TROPONIN Q3H Lab 12/30/17 05:00 Ordered TSH [TSH, 3RD Generation] Stat Lab 12/29/17 17:10 Completed UA W/RFX UR CULTURE Stat Lab 12/29/17 18:45 Completed Medication Summary Generic Name Dose Route Start Last Admin Trade Name [place] PRN Reason Stop Dose Admin Sodium Chloride 1,000 mls @ 50 mls/hr 12/29/17 17:00 12/29/17 17:42 Sodium Chloride 0.9% 1000 Ml IV 01/28/18 16:59 50 mls/hr .Q20H LUIS MIGUEL Administration Lab/Rad Data: Laboratory Result Diagrams 12/29/17 17:10 12/29/17 17:10 Laboratory Results 12/29/17 12/29/17 12/29/17 Range/Units Unknown 18:45 17:35 WBC (4.0-10.5) K/mm3 RBC (4.1-5.4) M/mm3 Hgb (12.0-16.0) gm/dl Hct (35-47) % MCV (78-100) fl MCH (26-32) pg MCHC (32-36) g/dl RDW (11.5-14.0) % Plt Count (150-450) K/mm3 MPV (6-9.5) fl Gran % (36.0-66.0) % Eos # (Auto) (0-0.5) Absolute Lymphs (auto) (1.0-4.6) Absolute Monos (auto) (0.0-1.3) Lymphocytes % (24.0-44.0) % Monocytes % (0.0-12.0) % Eosinophils % (0.00-5.0) % Basophils % (0.0-0.4) % Absolute Granulocytes (1.4-6.9) Basophils # (0-0.4) Sodium (137-145) mmol/L Potassium (3.5-5.1) mmol/L Chloride (98-107) mmol/L Carbon Dioxide (22-30) mmol/L Anion Gap (5-15) MEQ/L BUN (7-17) mg/dL Creatinine (0.52-1.04) mg/dL Estimated GFR ML/MIN Glucose (74-106) mg/dL Lactic Acid 2.6 H (0.4-2.0) Calcium (8.4-10.2) mg/dL Total Bilirubin (0.2-1.3) mg/dL AST (14-36) U/L ALT (0-35) U/L Alkaline Phosphatase (38-126) U/L Troponin I (0.000-0.034) ng/mL NT-Pro-B Natriuret Pep (0-900) pg/mL Serum Total Protein (6.3-8.2) g/dL Albumin (3.5-5.0) g/dL Lipase (23-300) U/L Thyroxine (T4) (5.53-10.96) ug/dL TSH 3rd Generation (0.47-4.68) mIU/L Urine Color YELLOW (YELLOW) Urine Appearance CLEAR (CLEAR) Urine pH 5.0 (5-6) Ur Specific [place] 1.024 (1.005-1.025) Urine Protein NEGATIVE (Negative) Urine Ketones SMALL (NEGATIVE) Urine Blood MODERATE (0-5) Bk/ul Urine Nitrite NEGATIVE (NEGATIVE) Urine Bilirubin NEGATIVE (NEGATIVE) Urine Urobilinogen NEGATIVE (0-1) mg/dL Ur Leukocyte Esterase NEGATIVE (NEGATIVE) Urine WBC (Auto) 0-2 (0-5) /HPF Urine RBC (Auto) 3-5 (0-2) /HPF U Hyaline Cast (Auto) 6-10 (0-2) /LPF U Epithel Cells (Auto) NONE (FEW) /HPF Urine Bacteria (Auto) RARE (NEGATIVE) /HPF Urine Mucus (Auto) SLIGHT (NEGATIVE) /HPF Urine Culture Reflexed YES (NO) Urine Glucose >=500 (NEGATIVE) mg/dL Influenza Type A Ag NEGATIVE (NEGATIVE) Influenza Type B Ag NEGATIVE (NEGATIVE) RSV (PCR) NEGATIVE (Negative) 12/29/17 12/29/17 12/29/17 Range/Units 17:10 17:10 17:10 WBC (4.0-10.5) K/mm3 RBC (4.1-5.4) M/mm3 Hgb (12.0-16.0) gm/dl Hct (35-47) % MCV (78-100) fl MCH (26-32) pg MCHC (32-36) g/dl RDW (11.5-14.0) % Plt Count (150-450) K/mm3 MPV (6-9.5) fl Gran % (36.0-66.0) % Eos # (Auto) (0-0.5) Absolute Lymphs (auto) (1.0-4.6) Absolute Monos (auto) (0.0-1.3) Lymphocytes % (24.0-44.0) % Monocytes % (0.0-12.0) % Eosinophils % (0.00-5.0) % Basophils % (0.0-0.4) % Absolute Granulocytes (1.4-6.9) Basophils # (0-0.4) Sodium (137-145) mmol/L Potassium (3.5-5.1) mmol/L Chloride (98-107) mmol/L Carbon Dioxide (22-30) mmol/L Anion Gap (5-15) MEQ/L BUN (7-17) mg/dL Creatinine (0.52-1.04) mg/dL Estimated GFR ML/MIN Glucose (74-106) mg/dL Lactic Acid (0.4-2.0) Calcium (8.4-10.2) mg/dL Total Bilirubin (0.2-1.3) mg/dL AST (14-36) U/L ALT (0-35) U/L Alkaline Phosphatase (38-126) U/L Troponin I 0.040 H* (0.000-0.034) ng/mL NT-Pro-B Natriuret Pep (0-900) pg/mL Serum Total Protein (6.3-8.2) g/dL Albumin (3.5-5.0) g/dL Lipase (23-300) U/L Thyroxine (T4) 6.51 (5.53-10.96) ug/dL TSH 3rd Generation 0.510 (0.47-4.68) mIU/L Urine Color (YELLOW) Urine Appearance (CLEAR) Urine pH (5-6) Ur Specific [place] (1.005-1.025) Urine Protein (Negative) Urine Ketones (NEGATIVE) Urine Blood (0-5) Bk/ul Urine Nitrite (NEGATIVE) Urine Bilirubin (NEGATIVE) Urine Urobilinogen (0-1) mg/dL Ur Leukocyte Esterase (NEGATIVE) Urine WBC (Auto) (0-5) /HPF Urine RBC (Auto) (0-2) /HPF U Hyaline Cast (Auto) (0-2) /LPF U Epithel Cells (Auto) (FEW) /HPF Urine Bacteria (Auto) (NEGATIVE) /HPF Urine Mucus (Auto) (NEGATIVE) /HPF Urine Culture Reflexed (NO) Urine Glucose (NEGATIVE) mg/dL Influenza Type A Ag (NEGATIVE) Influenza Type B Ag (NEGATIVE) RSV (PCR) (Negative) 12/29/17 12/29/17 12/29/17 Range/Units 17:10 17:10 16:59 WBC 11.1 H (4.0-10.5) K/mm3 RBC 4.32 (4.1-5.4) M/mm3 Hgb 12.2 (12.0-16.0) gm/dl Hct 38.9 (35-47) % MCV 90.0 (78-100) fl MCH 28.2 (26-32) pg MCHC 31.4 L (32-36) g/dl RDW 15.1 H (11.5-14.0) % Plt Count 263 (150-450) K/mm3 MPV 9.6 H (6-9.5) fl Gran % 84.8 H (36.0-66.0) % Eos # (Auto) 0.04 (0-0.5) Absolute Lymphs (auto) 0.98 L (1.0-4.6) Absolute Monos (auto) 0.61 (0.0-1.3) Lymphocytes % 8.9 L (24.0-44.0) % Monocytes % 5.5 (0.0-12.0) % Eosinophils % 0.4 (0.00-5.0) % Basophils % 0.4 (0.0-0.4) % Absolute Granulocytes 9.38 H (1.4-6.9) Basophils # 0.04 (0-0.4) Sodium 138 (137-145) mmol/L Potassium 4.3 (3.5-5.1) mmol/L Chloride 102 (98-107) mmol/L Carbon Dioxide 24 (22-30) mmol/L Anion Gap 16.3 H (5-15) MEQ/L BUN 28 H (7-17) mg/dL Creatinine 0.58 (0.52-1.04) mg/dL Estimated GFR > 60.0 ML/MIN Glucose 280 H (74-106) mg/dL Lactic Acid (0.4-2.0) Calcium 9.7 (8.4-10.2) mg/dL Total Bilirubin 0.70 (0.2-1.3) mg/dL AST 26 (14-36) U/L ALT 21 (0-35) U/L Alkaline Phosphatase 81 (38-126) U/L Troponin I (0.000-0.034) ng/mL NT-Pro-B Natriuret Pep 4040 H (0-900) pg/mL Serum Total Protein 6.2 L (6.3-8.2) g/dL Albumin 3.8 (3.5-5.0) g/dL Lipase 49 (23-300) U/L Thyroxine (T4) (5.53-10.96) ug/dL TSH 3rd Generation (0.47-4.68) mIU/L Urine Color (YELLOW) Urine Appearance (CLEAR) Urine pH (5-6) Ur Specific [place] (1.005-1.025) Urine Protein (Negative) Urine Ketones (NEGATIVE) Urine Blood (0-5) Bk/ul Urine Nitrite (NEGATIVE) Urine Bilirubin (NEGATIVE) Urine Urobilinogen (0-1) mg/dL Ur Leukocyte Esterase (NEGATIVE) Urine WBC (Auto) (0-5) /HPF Urine RBC (Auto) (0-2) /HPF U Hyaline Cast (Auto) (0-2) /LPF U Epithel Cells (Auto) (FEW) /HPF Urine Bacteria (Auto) (NEGATIVE) /HPF Urine Mucus (Auto) (NEGATIVE) /HPF Urine Culture Reflexed (NO) Urine Glucose (NEGATIVE) mg/dL Influenza Type A Ag (NEGATIVE) Influenza Type B Ag (NEGATIVE) RSV (PCR) (Negative) - Progress Progress: improved, re-examined Progress Note: 12/29/17 19:21 discussed with chris - LOANS CONSULTANT for Dr. Blanco and [facility] will accept pt and pt also agrees to transfer for elevated trop Discussed with : Other (Chris [facility] at [facility]) Will see patient in: ED Counseled pt/family regarding: lab results, diagnosis, need for follow-up, rad results - Departure Time of Disposition: 19:22 Departure Disposition: Transfer Clinical Impression: Elevated troponin, altered mental status - transient Condition: Good Critical Care Time: No Referrals: GABRIELLA MONROY [Primary Care Provider] -
[2017-12-29] MEDS ORDERED: Sodium Chloride 0.9% 1000 ML 1,000 ML IV SCH (17:00)
[2017-12-29 17:20] LABS: BASOPHIL % 0.4 % (0.0-0.4); Basophil (Absolute #) 0.04 (0-0.4); Eosinophil % 0.4 % (0.00-5.0); Eosinophil (Absolute #) 0.04 (0-0.5); Granulocyte Absolute (ANC) 9.38 (1.4-6.9); Granulocytes % 84.8 % (36.0-66.0); Hematocrit 38.9 % (35-47); Hemoglobin 12.2 gm/dl (12.0-16.0); Lymphocyte (Absolute #) 0.98 (1.0-4.6); Lymphocytes % 8.9 % (24.0-44.0); Mean Corpuscular Hemoglobin 28.2 pg (26-32); Mean Corpuscular Hgb Concent. 31.4 g/dl (32-36); Mean Platelet Volume 9.6 fl (6-9.5); Monocyte (Absolute #) 0.61 (0.0-1.3); Monocytes % 5.5 % (0.0-12.0); Platelet Count 263 K/mm3 (150-450); Red Blood Count 4.32 M/mm3 (4.1-5.4); Red Cell Distribution Width 15.1 % (11.5-14.0); White Blood Count 11.1 K/mm3 (4.0-10.5)
[2017-12-29] MEDS ORDERED: Sodium Chloride 0.9% 1000 ML 1,000 ML ONE (17:39)
[2017-12-29 17:40] LABS: Lactic Acid 2.6 (0.4-2.0)
[2017-12-29 17:41] LABS: ALBUMIN 3.8 g/dL (3.5-5.0); ALKALINE PHOSPHATASE 81 U/L (38-126); ANION GAP 16.3 MEQ/L (5-15); BLOOD UREA NITROGEN 28 mg/dL (7-17); CHLORIDE 102 mmol/L (98-107); Calcium 9.7 mg/dL (8.4-10.2); Carbon Dioxide 24 mmol/L (22-30); Creatinine 1 0.58 mg/dL (0.52-1.04); Glucose 280 mg/dL (74-106); LIPASE 49 U/L (23-300); Potassium 4.3 mmol/L (3.5-5.1); SGOT/AST 26 U/L (14-36); SGPT/ALT 21 U/L (0-35); SODIUM 138 mmol/L (137-145); Total Protein 6.2 g/dL (6.3-8.2)
[2017-12-29 18:16] LABS: INFLUENZA A NEGATIVE (NEGATIVE); INFLUENZA B NEGATIVE (NEGATIVE); RESPIRATORY SYNCTIAL VIRUS NEGATIVE (Negative)
[2017-12-29 18:47] VITALS: PULSE 112
[2017-12-29 19:04] LABS: Appearance CLEAR (CLEAR); Bilirubin NEGATIVE (NEGATIVE); Blood MODERATE Ery/ul (0-5); Glucose >=500 mg/dL (NEGATIVE); Ketones SMALL (NEGATIVE); Leukocyte Esterase NEGATIVE (NEGATIVE); Nitrite NEGATIVE (NEGATIVE); Protein,Urine Dip NEGATIVE (Negative); Specific Gravity 1.024 (1.005-1.025); Urobilinogen NEGATIVE mg/dL (0-1)
[2017-12-29 19:23] VITALS: O2SAT 96
[2017-12-29 20:03] VITALS: BP 124/82
--- NOTE | 2017-12-29 20:32 | XRAY ---
Indication: Confusion. Comparison: April 21, 2017. Portable chest again demonstrates chronic lung markings without focal infiltrate, consolidation, or large effusion. Heart remains borderline enlarged again with left-sided AICD. Bony thorax intact again with osteopenia, degenerative changes, and multilevel lumbar kyphoplasty. Impression: Stable nonacute chest with chronic features.
--- NOTE | 2017-12-29 20:34 | XRAY ---
Indication: Confusion. Multiple contiguous axial images obtained through the head without contrast. Comparison: None Several images through base of brain slightly degraded by motion artifact. Age-appropriate global atrophy and minimal periventricular degenerative micro-ischemia bilaterally. 8mm left posterior parietal calcified meningioma. No acute intracranial hemorrhage, abnormal extra-axial fluid collection, or mass effect. Fourth ventricle is midline. Bony calvarium intact. Visualized paranasal sinuses and mastoid air cells are clear. Impression: Motion artifact. Nonacute senile brain. Incidental left parietal subcentimeter calcified meningioma. Comment: Preliminary interpretation was made by [facility]. No discrepancy. CTDI 67.41
--- NOTE | 2017-12-29 20:40 | XRAY ---
Indication: Abdominal distention, painful voiding, confusion, and elevated WBC. Multiple contiguous axial images obtained through the abdomen and pelvis without contrast as ordered. Comparison: April 20, 2017. Lung bases again demonstrates bibasilar atelectasis/scarring and right lower lobe calcified granuloma. No infiltrate or effusion. Heart remains borderline enlarged. Stable small hiatal hernia. Noncontrasted stomach and bowel loops appear nonobstructed. Normal appendix. Stable partial colectomy with left lower quadrant diverting colostomy and previous hysterectomy. Again dense concretions in the rectal stump. No free fluid/air. Again fatty liver and a few calcified splenic granulomas. Remaining liver, gallbladder, pancreas, spleen, adrenal glands, kidneys, ureters, and bladder appear unremarkable for noncontrast exam. Moderate scattered aortoiliac calcifications without AAA. Osseous structures intact again with osteopenia, moderate multilevel degenerative spondylosis, remote-appearing multilevel thoracolumbar compression fractures, L1-L3 kyphoplasty, and remote-appearing bilateral pubic bone fractures. Impression: 1. Stable small hiatal hernia, fatty liver, partial colectomy with left lower quadrant colostomy, and evidence for old granulomatous disease. 2. No new or acute intra-abdominal/pelvic abnormalities on this noncontrast exam. 3. Stable incidental chronic bony findings. Comment: Preliminary interpretation was made by [facility]. No discrepancy. CTDI 21.91
== END 2017-12-29 20:56 | disposition short-term general hospital (02) ==
LOC: ED 16:13
DX: R77.8 Other specified abnormalities of plasma proteins (principal); R41.82 Altered mental status, unspecified; R10.84 Generalized abdominal pain; R53.83 Other fatigue; E11.9 Type 2 diabetes mellitus without complications; Z79.01 Long term (current) use of anticoagulants; Z79.899 Other long term (current) drug therapy; Z79.84 Long term (current) use of oral hypoglycemic drugs
CPT/HCPCS: 36000; 36415; 70450; 71045; 74176; 80053; 81001; 83605; 83690; 83880; 84436; 84443; 84484; 85025; 87077; 87086; 87186; 87631; 93005; 96360; 96361; 99285

== ENCOUNTER 2018-06-24 17:37 | Emergency (ER) | payer MEDICARE ==
[2018-06-24] MEDS ORDERED: Cardizem IV 50 MG/10 ML IV ONE ×3 (17:45→18:06)
[2018-06-24] MEDS ORDERED: CARDIZEM DRIP 100 MG/100 ML D5W 100 ML IV ONE (17:45)
[2018-06-24] MEDS ORDERED: CARDIZEM DRIP 100 MG/100 ML D5W 100 ML IV PRN (17:50)
[2018-06-24 17:58] LABS: BASOPHIL % 0.1 % (0.0-0.4); Basophil (Absolute #) 0.02 (0-0.4); Eosinophil % 0.1 % (0.00-5.0); Eosinophil (Absolute #) 0.02 (0-0.5); Granulocyte Absolute (ANC) 12.27 (1.4-6.9); Granulocytes % 81.4 % (36.0-66.0); Hematocrit 45.8 % (35-47); Hemoglobin 14.1 gm/dl (12.0-16.0); Lymphocytes % 13.3 % (24.0-44.0); Mean Cell Volume 87.1 fl (78-100); Mean Corpuscular Hemoglobin 26.8 pg (26-32); Mean Corpuscular Hgb Concent. 30.8 g/dl (32-36); Monocyte (Absolute #) 0.77 (0.0-1.3); Monocytes % 5.1 % (0.0-12.0); Platelet Count 209 K/mm3 (150-450); Red Blood Count 5.26 M/mm3 (4.1-5.4); Red Cell Distribution Width 17.9 % (11.5-14.0); White Blood Count 15.1 K/mm3 (4.0-10.5)
[2018-06-24] MEDS ORDERED: Sodium Chloride 0.9% 1000 ML 1,000 ML IV SCH (18:00)
[2018-06-24] MEDS ORDERED: Sodium Chloride 0.9% 1000 ML 1,000 ML ONE (18:04)
--- NOTE | 2018-06-24 18:20 | ERPHSYRPT ---
- History of Present Illness Time Seen by Provider: 06/24/18 17:45 Source: patient Exam Limitations: clinical condition Patient Subjective Stated Complaint: Pt states "I was taking a shower and my defib fired about 8 to 9 times. I am in no pain but this thing needs to stop fireing." Triage Nursing Assessment: Pt presented throught via [facility] ambulance with SCAT intercept. Pt presented alert and oriented X 3, skin pwd. Pt able to speak in clear full sentences. PT resting comfortably on the bed. Physician History: PATIENT WITH A HISTORY OR MYOCARDIAL INFARCTION, STENT INSERTION, PACEMAKER, TYPE 2 DIABETES COMPLAINS OF ACUTE ONSET OF DEFIBRILLATORY FIRING X 9 EPISODES THIS AFTERNOON. DENIES CHEST PAIN, DYSPNEA, PALPITATIONS OR DIAPHORESIS. STATES SHE HAS BEEN OUT OF HER CARDIAC MEDICATION SOTOLOL FOR 7 DAYS. Timing/Duration: today Activities at Onset: none Quality: other (PACAEMAKER FIRING X 9 EPISODES) Location: substernal Chest Pain Radiation: no radiation Severity of Pain-Max: moderate Severity of Pain-Current: moderate Modifying Factors: Improves With: nothing Nitro Today/Relief: no nitro taken today Aspirin Treatment Today: no aspirin today Associated Symptoms: denies symptoms Allergies/Adverse Reactions: No Known Drug Allergies Allergy (Verified 12/29/17 16:45) Home Medications: Alprazolam 1 mg [Xanax 1 mg] 1 mg PO TID 04/02/13 [History] Aspirin 81 gm Chew [Baby Aspirin 81 mg Chew] 81 mg PO DAILY 04/02/13 [ History] Clopidogrel Bisulfate 75 mg [PLAVIX 75 MG Tablet] 75 mg PO DAILY 04/02/13 [History] Furosemide 40 mg PO DAILY 04/02/13 [History] Lisinopril 5 mg [Zestril 5 MG] 5 mg PO DAILY 04/02/13 [History] Oxycodone HCl 20 mg PO QID 04/02/13 [History] Potassium Chloride 20 Meq [Klor-Con 20 MEQ] 10 meq PO BID 04/02/13 [History] Propylthiouracil 50 mg PO TID 04/02/13 [History] Simvastatin 40 mg [Zocor 40 mg] 40 mg PO DAILY 04/02/13 [History] Sotalol HCl [Betapace] 80 mg PO BID 04/02/13 [History] Fentanyl 50Mcg Patch [Duragesic 50MCG Patch] 1 patch TD UD 04/20/17 [ History] Glipizide 5 mg [Glucotrol 5 MG] 5 mg PO DAILY 04/20/17 [History] Omeprazole [Prilosec] 40 mg PO DAILY 04/20/17 [History] Venlafaxine HCl ER 37.5 mg [Effexor ER 37.5 MG] 37.5 mg PO DAILY 04/20/17 [History] Hx Tetanus, Diphtheria Vaccination/Date Given: Yes Hx Influenza Vaccination/Date Given: No Hx Pneumococcal Vaccination/Date Given: No Immunizations Up to Date: Yes - Review of Systems Constitutional: No Fever, No Chills Eyes: No Symptoms Ears, Nose, & Throat: No Symptoms Respiratory: No Cough, No Dyspnea Cardiac: No Symptoms, No Chest Pain, No Edema, No Syncope Abdominal/Gastrointestinal: No Symptoms, No Abdominal Pain, No Nausea, No Vomiting, No Diarrhea Genitourinary Symptoms: No Symptoms, No Dysuria Musculoskeletal: No Symptoms, No Back Pain, No Neck Pain Skin: No Rash Neurological: No Symptoms, No Dizziness, No Focal Weakness, No Sensory Changes Psychological: No Symptoms Endocrine: No Symptoms All Other Systems: Reviewed and Negative - Past Medical History Pertinent Past Medical History: Yes Neurological History: Peripheral Neuropathy ENT History: No Pertinent History Cardiac History: Congestive Heart Failure, Myocardial Infarction ([place]) Respiratory History: No Pertinent History Endocrine Medical History: Diabetes Type II Musculoskeletal History: Other GI Medical History: Diverticulitis, GERD, Hernia, Other History: Other Psycho-Social History: Anxiety, Depression Female Reproductive Disorders: No Pertinent History Other Medical History: back pain - Past Surgical History Past Surgical History: Yes Neuro Surgical History: No Pertinent History Cardiac: Angioplasty, Internal Defibrillator Respiratory: No Pertinent History Gastrointestinal: Bowel Surgery Genitourinary: No Pertinent History Musculoskeletal: No Pertinent History Female Surgical History: Hysterectomy, Tubal Ligation Other Surgical History: bladder tie up. pacemaker defib. 1 heart stent - Social History Smoking Status: Former smoker How long have you smoked: 40yrs Exposure to second hand smoke: Yes Drug Use: none Patient Lives Alone: Yes - Nursing Vital Signs Nursing Vital Signs: Initial Vital Signs Temperature 99.1 F 06/24/18 17:38 Pulse Rate 125 H 06/24/18 17:38 Respiratory Rate 16 06/24/18 17:38 Blood Pressure 134/98 06/24/18 17:38 O2 Sat by Pulse Oximetry 97 06/24/18 17:38 Pain Scale Pain Intensity 0 - Physical Exam General Appearance: no apparent distress Eye Exam: PERRL/EOMI Ears, Nose, Throat Exam: normal ENT inspection Neck Exam: normal inspection Respiratory Exam: normal breath sounds Cardiovascular Exam: regular rate/rhythm, tachycardia, irregular Gastrointestinal/Abdomen Exam: soft, normal bowel sounds, other (LLQ COLOSTOMY) Back Exam: normal inspection Extremity Exam: normal inspection Neurologic Exam: alert, oriented x 3 Skin Exam: cyanosis SpO2 Interpretation: normal SpO2: 97 - Course EKG Interpreted by Me: RATE, Other (RAPID ATRIAL FIB RVR RATE 140'S) - Radiology Exams Chest X-ray Interpretation: Interpreted by me (FLAT DIAPHRAMS, PACEMAKER LEFT HEMITHORAX) Ordered Tests: Active Orders 24 hr Category Date Time Status Yard Cleaner STAT Care 06/24/18 17:49 Active EKG-ER Only STAT Care 06/24/18 17:49 Active IV Insertion STAT Care 06/24/18 17:49 Active Oxygen-ED Only Nasal Cannula 2 lpm Care 06/24/18 17:49 Active CHEST 1 VIEW (PORTABLE) Stat Exams 06/24/18 17:49 Taken CBC W DIFF Stat Lab 06/24/18 17:54 Completed CMP Stat Lab 06/24/18 17:54 Completed CULTURE,URINE Routine Lab 06/24/18 18:35 Received MAGNESIUM Stat Lab 06/24/18 18:00 Completed NT PRO BNP Stat Lab 06/24/18 17:54 Completed PROTIME WITH INR Stat Lab 06/24/18 17:54 Completed TROPONIN Q3H Lab 06/24/18 17:54 Completed TROPONIN Q3H Lab 06/24/18 21:00 Ordered TROPONIN Q3H Lab 06/25/18 00:00 Ordered TROPONIN Q3H Lab 06/25/18 03:00 Ordered TROPONIN Q3H Lab 06/25/18 06:00 Ordered UA W/RFX UR CULTURE Stat Lab 06/24/18 18:35 Completed Medication Summary Generic Name Dose Route Start Last Admin Trade Name Freq PRN Reason Stop Dose Admin Sodium Chloride 1,000 mls @ 50 mls/hr 06/24/18 18:00 05/19/19 18:00 Sodium Chloride 0.9% 1000 Ml IV 07/24/18 17:59 50 mls/hr .Q20H LUIS MIGUEL Administration Diltiazem HCl 100 mls @ 10 mls/hr 06/24/18 17:50 06/24/18 18:00 Cardizem Drip 100 Mg/100 Ml D5w IV 07/24/18 17:49 10 mg/hr .Q10H PRN 10 mls/hr HEART RATE/ A-FIB Administration Protocol 10 MG/HR Discontinued Medications Generic Name Dose Route Start Last Admin Trade Name Freq PRN Reason Stop Dose Admin Diltiazem HCl Confirm 06/24/18 17:45 Cardizem Iv 50 Mg/10 Ml Administered 06/24/18 17:46 Dose 50 mg IV .STK-MED ONE Diltiazem HCl 20 mg 06/24/18 17:50 06/24/18 18:00 Cardizem Iv 50 Mg/10 Ml IV 06/24/18 17:51 20 mg STAT ONE Administration Diltiazem HCl 10 mg 06/24/18 18:06 06/24/18 18:13 Cardizem Iv 50 Mg/10 Ml IV 06/24/18 18:07 10 mg STAT ONE Administration Diltiazem HCl Confirm 06/24/18 17:45 Cardizem Drip 100 Mg/100 Ml D5w Administered 06/24/18 17:46 Dose 100 mls @ ud IV .STK-MED ONE Lab/Rad Data: Laboratory Result Diagrams 06/24/18 17:54 06/24/18 17:54 Laboratory Results 06/24/18 06/24/18 06/24/18 Range/Units 18:35 18:00 17:54 WBC (4.0-10.5) K/mm3 RBC (4.1-5.4) M/mm3 Hgb (12.0-16.0) gm/dl Hct (35-47) % MCV (78-100) fl MCH (26-32) pg MCHC (32-36) g/dl RDW (11.5-14.0) % Plt Count (150-450) K/mm3 MPV (6-9.5) fl Gran % (36.0-66.0) % Eos # (Auto) (0-0.5) Absolute Lymphs (auto) (1.0-4.6) Absolute Monos (auto) (0.0-1.3) Lymphocytes % (24.0-44.0) % Monocytes % (0.0-12.0) % Eosinophils % (0.00-5.0) % Basophils % (0.0-0.4) % Absolute Granulocytes (1.4-6.9) Basophils # (0-0.4) PT (9.95-12.35) SECONDS INR (0.8-3.0) Sodium (137-145) mmol/L Potassium (3.5-5.1) mmol/L Chloride (98-107) mmol/L Carbon Dioxide (22-30) mmol/L Anion Gap (5-15) MEQ/L BUN (7-17) mg/dL Creatinine (0.52-1.04) mg/dL Estimated GFR ML/MIN Glucose (74-106) mg/dL Calcium (8.4-10.2) mg/dL Magnesium 2.0 (1.6-2.3) mg/dL Total Bilirubin (0.2-1.3) mg/dL AST (14-36) U/L ALT (0-35) U/L Alkaline Phosphatase (38-126) U/L Troponin I 0.114 H* (0.000-0.034) ng/mL NT-Pro-B Natriuret Pep (0-1800) pg/mL Serum Total Protein (6.3-8.2) g/dL Albumin (3.5-5.0) g/dL Urine Color STRAW (YELLOW) Urine Appearance CLEAR (CLEAR) Urine pH 5.0 (5-6) Ur Specific [place] 1.009 (1.005-1.025) Urine Protein NEGATIVE (Negative) Urine Ketones NEGATIVE (NEGATIVE) Urine Blood MODERATE (0-5) Bk/ul Urine Nitrite NEGATIVE (NEGATIVE) Urine Bilirubin NEGATIVE (NEGATIVE) Urine Urobilinogen NEGATIVE (0-1) mg/dL Ur Leukocyte Esterase NEGATIVE (NEGATIVE) Urine WBC (Auto) NONE SEEN (0-5) /HPF Urine RBC (Auto) 0-2 (0-2) /HPF U Hyaline Cast (Auto) 11-25 (0-2) /LPF U Epithel Cells (Auto) NONE (FEW) /HPF Urine Bacteria (Auto) NONE SEEN (NEGATIVE) /HPF Urine Mucus (Auto) SLIGHT (NEGATIVE) /HPF Urine Culture Reflexed ORDERED SEPARATELY (NO) Urine Glucose NEGATIVE (NEGATIVE) mg/dL 06/24/18 06/24/18 06/24/18 Range/Units 17:54 17:54 17:54 WBC 15.1 H (4.0-10.5) K/mm3 RBC 5.26 (4.1-5.4) M/mm3 Hgb 14.1 (12.0-16.0) gm/dl Hct 45.8 (35-47) % MCV 87.1 (78-100) fl MCH 26.8 (26-32) pg MCHC 30.8 L (32-36) g/dl RDW 17.9 H (11.5-14.0) % Plt Count 209 (150-450) K/mm3 MPV 10.0 H (6-9.5) fl Gran % 81.4 H (36.0-66.0) % Eos # (Auto) 0.02 (0-0.5) Absolute Lymphs (auto) 2.00 (1.0-4.6) Absolute Monos (auto) 0.77 (0.0-1.3) Lymphocytes % 13.3 L (24.0-44.0) % Monocytes % 5.1 (0.0-12.0) % Eosinophils % 0.1 (0.00-5.0) % Basophils % 0.1 (0.0-0.4) % Absolute Granulocytes 12.27 H (1.4-6.9) Basophils # 0.02 (0-0.4) PT 13.7 H (9.95-12.35) SECONDS INR 1.18 (0.8-3.0) Sodium 136 L (137-145) mmol/L Potassium 4.6 (3.5-5.1) mmol/L Chloride 97 L (98-107) mmol/L Carbon Dioxide 23 (22-30) mmol/L Anion Gap 20.4 H (5-15) MEQ/L BUN 22 H (7-17) mg/dL Creatinine 0.64 (0.52-1.04) mg/dL Estimated GFR > 60.0 ML/MIN Glucose 245 H (74-106) mg/dL Calcium 9.3 (8.4-10.2) mg/dL Magnesium (1.6-2.3) mg/dL Total Bilirubin 1.10 (0.2-1.3) mg/dL AST 48 H (14-36) U/L ALT 29 (0-35) U/L Alkaline Phosphatase 67 (38-126) U/L Troponin I (0.000-0.034) ng/mL NT-Pro-B Natriuret Pep 568 (0-1800) pg/mL Serum Total Protein 7.4 (6.3-8.2) g/dL Albumin 4.3 (3.5-5.0) g/dL Urine Color (YELLOW) Urine Appearance (CLEAR) Urine pH (5-6) Ur Specific [place] (1.005-1.025) Urine Protein (Negative) Urine Ketones (NEGATIVE) Urine Blood (0-5) Bk/ul Urine Nitrite (NEGATIVE) Urine Bilirubin (NEGATIVE) Urine Urobilinogen (0-1) mg/dL Ur Leukocyte Esterase (NEGATIVE) Urine WBC (Auto) (0-5) /HPF Urine RBC (Auto) (0-2) /HPF U Hyaline Cast (Auto) (0-2) /LPF U Epithel Cells (Auto) (FEW) /HPF Urine Bacteria (Auto) (NEGATIVE) /HPF Urine Mucus (Auto) (NEGATIVE) /HPF Urine Culture Reflexed (NO) Urine Glucose (NEGATIVE) mg/dL - Progress Progress: improved Progress Note: 06/24/18 18:35 IV NORMAL SALINE 100ML/HR, CARDIZEM 20MG IV SLOWLY, FOLLOWED BY CARDIZEM 10MG IV FOLLOWED BY CARDIZEM INFUSION 10MG/HR. RATE IMPROVED ATRIAL FIB 150'S TO RATE [address]Paul: Other (DISCUSSED WITH DR FLORES OF [facility] ER ACCEPTS TRANSFER VIA [facility]) - Departure Departure Disposition: Transfer Clinical Impression: DEFIBRILLATORY FIRING, Atrial fibrillation with RVR Condition: Stable Critical Care Time: No Referrals: GABRIELLA MONROY [ACTIVE STAFF] -
[2018-06-24 18:21] LABS: INR 1.18 (0.8-3.0); PROTIME 13.7 SECONDS (9.95-12.35)
[2018-06-24 18:26] LABS: ALBUMIN 4.3 g/dL (3.5-5.0); ALKALINE PHOSPHATASE 67 U/L (38-126); ANION GAP 20.4 MEQ/L (5-15); BLOOD UREA NITROGEN 22 mg/dL (7-17); CHLORIDE 97 mmol/L (98-107); Calcium 9.3 mg/dL (8.4-10.2); Carbon Dioxide 23 mmol/L (22-30); Creatinine 1 0.64 mg/dL (0.52-1.04); Glucose 245 mg/dL (74-106); NT PRO BNP 568 pg/mL (0-1800); Potassium 4.6 mmol/L (3.5-5.1); SGOT/AST 48 U/L (14-36); SGPT/ALT 29 U/L (0-35); SODIUM 136 mmol/L (137-145); Total Protein 7.4 g/dL (6.3-8.2)
[2018-06-24 18:31] VITALS: BP 92/67; PULSE 100
[2018-06-24 18:33] VITALS: O2SAT 97
[2018-06-24 18:45] LABS: Appearance CLEAR (CLEAR); Bilirubin NEGATIVE (NEGATIVE); Blood MODERATE Ery/ul (0-5); Glucose NEGATIVE (NEGATIVE); Ketones NEGATIVE (NEGATIVE); Leukocyte Esterase NEGATIVE (NEGATIVE); Mucus SLIGHT /HPF (NEGATIVE); Nitrite NEGATIVE (NEGATIVE); Protein,Urine Dip NEGATIVE (Negative); RBC 0-2 /HPF (0-2); Specific Gravity 1.009 (1.005-1.025); Urobilinogen NEGATIVE mg/dL (0-1)
[2018-06-24 18:46] LABS: Bacteria NONE SEEN /HPF (NEGATIVE); WBC NONE SEEN /HPF (0-5)
--- NOTE | 2018-06-25 13:26 | XRAY ---
Exam: AP upright portable chest film from 06/24/2018. Comparison: AP upright portable chest film from 12/29/2017. Indication: 73-year-old female with dyspnea, defibrillator is "firing". Findings: The transverse heart size remains at the upper limits of normal to borderline enlarged with mild left ventricular prominence representing no change from 12/29/2017. Left-sided cardiac pacemaker/defibrillator is noted with a single transvenous lead extending towards the apex of the right ventricle. This is unchanged. Dense atherosclerotic vascular calcification of the aortic knob is seen. The remainder of the heri and mediastinal structures appears unremarkable. Respiratory tubing overlies the right upper lung field. There is adequate inflation of the lungs. A small calcified granuloma is again seen at the right lung base. No air space infiltrates, vascular congestion, pneumothorax, or pleural fluid is seen. Mild biapical pleural thickening/scarring is seen, left slightly greater than right. Dense atherosclerotic vascular calcification is seen within the right side of the neck within the projection of the carotid artery. Correlate clinically regarding a bruit on this side. 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 There is some elevation of the left humeral head with respect to the glenoid of the left scapula suggesting chronic rotator cuff disease on this side as well. Multilevel kyphoplasties are seen within the upper lumbar spine. I cannot exclude some partially seen metallic orthopedic hardware within the lower lumbar spine. Correlate with surgical history. Impression: 1. No air space infiltrates, heart failure/pulmonary edema, or other acute cardiopulmonary disease is seen. The findings appear similar to 12/29/2017, as detailed above.
== END 2018-06-24 19:20 | disposition short-term general hospital (02) ==
LOC: ED 17:37
DX: T82.198S Other mechanical complication of other cardiac electronic device, sequela (principal); I48.91 Unspecified atrial fibrillation; I48.2 Chronic atrial fibrillation; Z98.61 Coronary angioplasty status; E11.9 Type 2 diabetes mellitus without complications; Z79.899 Other long term (current) drug therapy
CPT/HCPCS: 36000; 36415; 51702; 71045; 80053; 81001; 83735; 83880; 84484; 85025; 85610; 87086; 93005; 93041; 96360; 96374; 96375; 96376; 99285

== ENCOUNTER 2019-02-28 12:28 | Emergency (ER) | payer MEDICARE ==
[2019-02-28] MEDS ORDERED: Hydromorphone 1 mg/ml Ampule IV ONE (13:18)
[2019-02-28] MEDS ORDERED: TORAdol 30 mg Injection IV ONE (13:18)
[2019-02-28] MEDS ORDERED: Sodium Chloride 0.9% 1000 ML 1,000 ML IV STA (13:18)
[2019-02-28] MEDS ORDERED: Zofran 4 MG/2 ML VIAL IV ONE (13:19)
[2019-02-28] MEDS ORDERED: Zofran 4 MG/2 ML VIAL ONE ×2 (13:26→13:40)
[2019-02-28] MEDS ORDERED: TORAdol 30 mg Injection ONE (13:26)
[2019-02-28] MEDS ORDERED: Sodium Chloride 0.9% 1000 ML 1,000 ML ONE (13:26)
[2019-02-28] MEDS ORDERED: Hydromorphone 1 mg/ml Ampule ONE (13:26)
[2019-02-28 13:40] LABS: Hematocrit 42.3 % (35-47); Hemoglobin 13.3 gm/dl (12.0-16.0); Mean Cell Volume 87.8 fl (78-100); Mean Corpuscular Hemoglobin 27.6 pg (26-32); Mean Corpuscular Hgb Concent. 31.4 g/dl (32-36); Mean Platelet Volume 10.2 fl (7.5-11.0); Platelet Count 353 K/mm3 (150-450); Red Blood Count 4.82 M/mm3 (4.1-5.4); Red Cell Distribution Width 14.7 % (11.5-14.0)
[2019-02-28 13:52] LABS: ALBUMIN 4.3 g/dL (3.5-5.0); ALKALINE PHOSPHATASE 430 U/L (38-126); ANION GAP 19.6 MEQ/L (5-15); BLOOD UREA NITROGEN 36 mg/dL (7-17); CHLORIDE 89 mmol/L (98-107); Calcium 9.8 mg/dL (8.4-10.2); Carbon Dioxide 30 mmol/L (22-30); Creatinine 1 0.67 mg/dL (0.52-1.04); Glucose 384 mg/dL (74-106); LIPASE 27 U/L (23-300); SGOT/AST 22 U/L (14-36); SGPT/ALT 16 U/L (0-35); SODIUM 134 mmol/L (137-145); Total Protein 7.7 g/dL (6.3-8.2)
[2019-02-28 14:14] LABS: BAND 5 % (0.0-2.0); Eosinophil 2 % (0.00-3.0); Lymphocytes 6 % (24-44); Monocyte 4 % (0.0-12.0); Neutrophils 83 % (36.0-66.0); Total Cells Counted 100; Toxic Granulation 1+
[2019-02-28 14:15] LABS: Platelet Estimate NORMAL (NORMAL)
[2019-02-28] MEDS ORDERED: Inapsine 5 MG/2 ML IV ONE (14:17)
[2019-02-28] MEDS ORDERED: BENADRYL 50 MG/ML IV ONE (14:17)
[2019-02-28] MEDS ORDERED: MORPHINE SULFATE 10 MG/ML IV ONE (14:17)
--- NOTE | 2019-02-28 14:18 | ERPHSYRPT ---
- History of Present Illness Time Seen by Provider: 02/28/19 12:36 Historian: patient Exam Limitations: no limitations Patient Subjective Stated Complaint: "I have had abd pain for weeks" states had ct of abd done here yesterday per Dr Price. States h/o diverticulities, has colostomy due to colon surgery. Triage Nursing Assessment: Aaox3, walked in, color fair, resp slightly labored with exertion, c/o abd pain "for weeks" in mid upper abdomen. no n/v. no diarrhea,. Seen Dr Price and CT abd done yesterday. Physician History: Location: lower abdomen pain Quality: sharp Radiation: none Severity: moderate Duration: several weeks Timing: gradual Modifying factors/associated signs and symptoms: Patient had a CT completed yesterday. Patient had possible new cancer on the CT scan. This was done yesterday. She has not seen here PCP for this. Patient has a history of chronic opiate use. She states she has been slowly wean off the past few months. However , she is experiencing some rebound pain. Allergies/Adverse Reactions: No Known Drug Allergies Allergy (Verified 12/29/17 16:45) Home Medications: Alprazolam 1 mg [Xanax 1 mg] 1 mg PO TID 04/02/13 [History] Aspirin 81 gm Chew [Baby Aspirin 81 mg Chew] 81 mg PO DAILY 04/02/13 [ History] Clopidogrel Bisulfate 75 mg [PLAVIX 75 MG Tablet] 75 mg PO DAILY 04/02/13 [History] Furosemide 40 mg PO DAILY 04/02/13 [History] Lisinopril 5 mg [Zestril 5 MG] 5 mg PO DAILY 04/02/13 [History] Oxycodone HCl 20 mg PO QID 04/02/13 [History] Potassium Chloride 20 Meq [Klor-Con 20 MEQ] 10 meq PO BID 04/02/13 [History] Propylthiouracil 50 mg PO TID 04/02/13 [History] Simvastatin 40 mg [Zocor 40 mg] 40 mg PO DAILY 04/02/13 [History] Sotalol HCl [Betapace] 80 mg PO BID 04/02/13 [History] Fentanyl 50Mcg Patch [Duragesic 50MCG Patch] 1 patch TD UD 04/20/17 [ History] Glipizide 5 mg [Glucotrol 5 MG] 5 mg PO DAILY 04/20/17 [History] Omeprazole [Prilosec] 40 mg PO DAILY 04/20/17 [History] Venlafaxine HCl ER 37.5 mg [Effexor ER 37.5 MG] 37.5 mg PO DAILY 04/20/17 [History] Hx Tetanus, Diphtheria Vaccination/Date Given: No Hx Influenza Vaccination/Date Given: No Hx Pneumococcal Vaccination/Date Given: No - Review of Systems Constitutional: No Fever, No Chills Eyes: No Symptoms Ears, Nose, & Throat: No Symptoms Respiratory: No Cough, No Dyspnea Cardiac: No Chest Pain, No Edema, No Syncope Abdominal/Gastrointestinal: Abdominal Pain, Nausea, No Vomiting, No Diarrhea Genitourinary Symptoms: No Dysuria Musculoskeletal: No Back Pain, No Neck Pain Skin: No Rash Neurological: No Dizziness, No Focal Weakness, No Sensory Changes Psychological: No Symptoms Endocrine: No Symptoms All Other Systems: Reviewed and Negative - Past Medical History Pertinent Past Medical History: Yes Neurological History: Peripheral Neuropathy ENT History: No Pertinent History Cardiac History: Congestive Heart Failure, Myocardial Infarction ([place]) Respiratory History: No Pertinent History Endocrine Medical History: Diabetes Type II Musculoskeletal History: Other GI Medical History: Diverticulitis, GERD, Hernia, Other History: Other Psycho-Social History: Anxiety, Depression Female Reproductive Disorders: No Pertinent History Other Medical History: back pain - Past Surgical History Past Surgical History: Yes Neuro Surgical History: No Pertinent History Cardiac: Angioplasty, Internal Defibrillator Respiratory: No Pertinent History Gastrointestinal: Bowel Surgery Genitourinary: No Pertinent History Musculoskeletal: No Pertinent History Female Surgical History: Hysterectomy, Tubal Ligation Other Surgical History: bladder tie up. pacemaker defib. 1 heart stent - Social History Smoking Status: Former smoker How long have you smoked: 15 yrs Exposure to second hand smoke: No Drug Use: none Patient Lives Alone: Yes - Female History Hx Now: No - Nursing Vital Signs Nursing Vital Signs: Initial Vital Signs Temperature 97.8 F 02/28/19 12:35 Pulse Rate 110 H 02/28/19 12:35 Respiratory Rate 22 02/28/19 12:35 Blood Pressure 142/88 02/28/19 12:35 O2 Sat by Pulse Oximetry 97 02/28/19 12:35 Pain Scale Pain Intensity 7 - Physical Exam General Appearance: no apparent distress, alert Eye Exam: PERRL/EOMI, eyes nml inspection Ears, Nose, Throat Exam: normal ENT inspection, pharynx normal, moist mucous membranes Neck Exam: normal inspection, non-tender, supple, full range of motion Respiratory Exam: normal breath sounds, lungs clear, No respiratory distress Cardiovascular Exam: regular rate/rhythm, normal heart sounds Gastrointestinal/Abdomen Exam: soft, tenderness, No mass Back Exam: normal inspection, normal range of motion, No CVA tenderness, No vertebral tenderness Extremity Exam: normal inspection, normal range of motion, pelvis stable Neurologic Exam: alert, oriented x 3, cooperative, normal mood/affect, nml cerebellar function, sensation nml, No motor deficits Skin Exam: normal color, warm, dry SpO2: 97 Comments: 02/28/19 14:19 Lower abdominal pain. No rebound or guarding. Colostomy in place. Not an acute abdomen. Ordered Tests: Active Orders 24 hr Category Date Time Status IV Insertion STAT Care 02/28/19 13:18 Active CBC W DIFF Stat Lab 02/28/19 12:45 Completed CMP Stat Lab 02/28/19 12:45 Completed LIPASE Stat Lab 02/28/19 12:45 Completed Manual Differential NC Stat Lab 02/28/19 12:45 Completed Medication Summary Discontinued Medications Generic Name Dose Route Start Last Admin Trade Name Maniq PRN Reason Stop Dose Admin Diphenhydramine HCl 50 mg 02/28/19 14:17 02/28/19 14:42 Benadryl 50 Mg/Ml IV 02/28/19 14:18 50 mg STAT ONE Administration Diphenhydramine HCl Confirm 02/28/19 14:37 Benadryl 50 Mg/Ml Administered 02/28/19 14:38 Dose 50 mg .ROUTE .STK-MED ONE Droperidol 1.25 mg 02/28/19 14:17 02/28/19 14:42 Inapsine 5 Mg/2 Ml IV 02/28/19 14:18 1.25 mg STAT ONE Administration Droperidol Confirm 02/28/19 14:37 Inapsine 5 Mg/2 Ml Administered 02/28/19 14:38 Dose 5 mg .ROUTE .STK-MED ONE Hydromorphone HCl 1 mg 02/28/19 13:18 02/28/19 13:39 Hydromorphone 1 Mg/Ml Ampule IV 02/28/19 13:19 1 mg STAT ONE Administration Hydromorphone HCl Confirm 02/28/19 13:26 Hydromorphone 1 Mg/Ml Ampule Administered 02/28/19 13:27 Dose 1 mg .ROUTE .STK-MED ONE Sodium Chloride 1,000 mls @ 999 mls/hr 02/28/19 13:18 02/28/19 13:40 Sodium Chloride 0.9% 1000 Ml IV 02/28/19 14:18 999 mls/hr .Q1H1M STA Administration Sodium Chloride Confirm 02/28/19 13:26 Sodium Chloride 0.9% 1000 Ml Administered 02/28/19 13:27 Dose 1,000 mls @ ud .ROUTE .STK-MED ONE Ketorolac Tromethamine 30 mg 02/28/19 13:18 02/28/19 13:38 Toradol 30 Mg Injection IV 02/28/19 13:19 30 mg STAT ONE Administration Ketorolac Tromethamine Confirm 02/28/19 13:26 Toradol 30 Mg Injection Administered 02/28/19 13:27 Dose 30 mg .ROUTE .STK-MED ONE Morphine Sulfate 10 mg 02/28/19 14:17 02/28/19 14:41 Morphine Sulfate 10 Mg/Ml IV 02/28/19 14:18 10 mg STAT ONE Administration Morphine Sulfate Confirm 02/28/19 14:38 Morphine Sulfate 10 Mg/Ml Administered 02/28/19 14:39 Dose 10 mg .ROUTE .STK-MED ONE Ondansetron HCl 8 mg 02/28/19 13:19 02/28/19 13:38 Zofran 4 Mg/2 Ml Vial IV 02/28/19 13:20 8 mg STAT ONE Administration Ondansetron HCl Confirm 02/28/19 13:26 Zofran 4 Mg/2 Ml Vial Administered 02/28/19 13:27 Dose 4 mg .ROUTE .STK-MED ONE Ondansetron HCl Confirm 02/28/19 13:40 Zofran 4 Mg/2 Ml Vial Administered 02/28/19 13:41 Dose 4 mg .ROUTE .STK-MED ONE Lab/Rad Data: Laboratory Result Diagrams 02/28/19 12:45 02/28/19 12:45 Laboratory Results 02/28/19 02/28/19 Range/Units 12:45 12:45 WBC 19.0 H (4.0-10.5) K/mm3 RBC 4.82 (4.1-5.4) M/mm3 Hgb 13.3 (12.0-16.0) gm/dl Hct 42.3 (35-47) % MCV 87.8 (78-100) fl MCH 27.6 (26-32) pg MCHC 31.4 L (32-36) g/dl RDW 14.7 H (11.5-14.0) % Plt Count 353 (150-450) K/mm3 MPV 10.2 (7.5-11.0) fl Segmented Neutrophils 83 H (36.0-66.0) % Band Neutrophils 5 H (0.0-2.0) % Lymphocytes (Manual) 6 L (24-44) % Monocytes (Manual) 4 (0.0-12.0) % Eosinophils (Manual) 2 (0.00-3.0) % Toxic Granulation 1+ Platelet Estimate NORMAL (NORMAL) RBC Morphology NORMAL Sodium 134 L (137-145) mmol/L Potassium 4.0 (3.5-5.1) mmol/L Chloride 89 L (98-107) mmol/L Carbon Dioxide 30 (22-30) mmol/L Anion Gap 19.6 H (5-15) MEQ/L BUN 36 H (7-17) mg/dL Creatinine 0.67 (0.52-1.04) mg/dL Estimated GFR > 60.0 ML/MIN Glucose 384 H (74-106) mg/dL Calcium 9.8 (8.4-10.2) mg/dL Total Bilirubin 0.70 (0.2-1.3) mg/dL AST 22 (14-36) U/L ALT 16 (0-35) U/L Alkaline Phosphatase 430 H (38-126) U/L Serum Total Protein 7.7 (6.3-8.2) g/dL Albumin 4.3 (3.5-5.0) g/dL Lipase 27 (23-300) U/L - Progress Progress: improved Progress Note: 02/28/19 14:19 I did discuss the new likely finding of cancer with the patient and her daughter. I also discussed with Dr. Price over the phone. She will see the patient in close follow up. I do not believe we need to repeat CT scan today. Basic labs and pain control today. No suspicion of SBO. 02/28/19 15:14 Patient pain completely resolved on second round of pain medication. At this time, we will discharge patient home. Close follow up with Dr. Price. She will return here for new or changing symptoms. Discussed with : Roby Counseled pt/family regarding: lab results, diagnosis, need for follow-up - Departure Departure Disposition: Home Clinical Impression: Abdominal pain Condition: Stable Critical Care Time: No Referrals: LEONARDO PRICE DO [Primary Care Provider] - Instructions: Acute Abdomen (Belly Pain), Adult (DC)
[2019-02-28] MEDS ORDERED: Inapsine 5 MG/2 ML ONE (14:37)
[2019-02-28] MEDS ORDERED: BENADRYL 50 MG/ML ONE (14:37)
[2019-02-28] MEDS ORDERED: MORPHINE SULFATE 10 MG/ML ONE (14:38)
[2019-02-28 15:37] VITALS: BP 140/83; PULSE 108; O2SAT 95
== END 2019-02-28 15:45 | disposition home or self-care (01) ==
LOC: ED 12:28
DX: R10.30 Lower abdominal pain, unspecified (principal)
CPT/HCPCS: 36000; 36415; 80053; 83690; 85025; 96360; 96374; 96375; 99284; J1170; J1200; J1885; J2270; J2405